=== PATIENT | female | born 1990 | race Caucasian/White ===

== ENCOUNTER → 2017-03-27 | Outpatient (CLI) | payer OTHER ==
[~2017-03-27] MED LIST: COLACE-DPS100 MG PO; MOTRIN-DPS800 MG PO; NIPPLECREAM TP; PRENATAL VIT1 TAB PO; TYLENOL #3 DPS1 TAB PO
== END | disposition home or self-care (01) ==
LOC: RAD.S 14:50
DX: E04.2 Nontoxic multinodular goiter (principal)